=== PATIENT | male | born 1995 | race Caucasian/White ===

== ENCOUNTER 2017-06-06 16:56 | Emergency (ER) | payer OTHER ==
[2017-06-06 18:13] VITALS: BP 118/57
[2017-06-06] MEDS ORDERED: Amoxicillin/Clavulanate TAB* 875 MG PO ONE (18:31)
--- NOTE | 2017-06-06 18:32 | UC ---
Throat Pain/Nasal Rhett HPI - HPI Summary HPI Summary: c/o fever, sore throat and fatigue for several days - History of Current Complaint Chief Complaint: UCGeneralIllness Stated Complaint: SORE THROAT Time Seen by Provider: 06/06/17 18:26 Hx Obtained From: Patient Onset/Duration: Gradual Onset, Lasting Days Severity: Severe Pain Intensity: 9 Cough: None Associated Signs & Symptoms: Positive: Dysphagia, Fever - Epiglottits Risk Factors Epiglottis Risk Factors: Negative - Allergies/Home Medications Allergies/Adverse Reactions: Allergies Allergy/AdvReac Type Severity Reaction Status Date / Time No Known Allergies Allergy Verified 06/06/17 18:09 Home Medications: Home Medications Acetaminophen [Acetaminophen Extra Strength] 1,000 mg PO ONCE 06/06/17 [History Confirmed 06/06/17] PMH/Surg Hx/FS Hx/Imm Hx Previously Healthy: Yes - Surgical History Surgical History: None - Family History Known Family History: Positive: None - Social History Alcohol Use: Weekly Substance Use Type: Marijuana Substance Use Comment - Amount & Last Used: daily Smoking Status (MU): Never Smoked Tobacco Review of Systems Constitutional: Fever ENT: Sore Throat All Other Systems Reviewed And Are Negative: Yes Physical Exam Triage Information Reviewed: Yes Appearance: No Pain Distress, Well-Nourished, Ill-Appearing Vital Signs: Initial Vital Signs Temp 99 F 06/06/17 18:07 Pulse 71 06/06/17 18:07 Resp 16 06/06/17 18:07 BP 118/57 06/06/17 18:07 Pulse Ox 98 06/06/17 18:07 Vital Signs Reviewed: Yes Eyes: Positive: Conjunctiva Clear ENT: Positive: Hearing grossly normal, Pharyngeal erythema, TMs normal, Tonsillar exudate Neck exam: Normal Neck: Positive: Supple, Nontender Respiratory Exam: Normal Respiratory: Positive: Chest non-tender, Lungs clear, Normal breath sounds, No respiratory distress Cardiovascular Exam: Normal Cardiovascular: Positive: RRR, No Murmur, Pulses Normal, Brisk Capillary Refill Throat Pain/Nasal Course/Dx - Course Course Of Treatment: start amoxil at UC first dose, oral hydration, tylenol or ibuprofen as needed, probiotics, f/u with PCP - Differential Dx/Diagnosis Provider Diagnoses: streptococcal pharyngitis Discharge - Sign-Out/Discharge Documenting (check all that apply): Discharge/Admit/Transfer - Discharge Plan Condition: Stable Disposition: HOME Patient Education Materials: Amoxicillin (By mouth), Strep Throat (DC) Referrals: Non Staff,Doctor [Primary Care Provider] - [facility] [Outside] - Billing Disposition and Condition Condition: STABLE Disposition: HOME
[2017-06-06] MEDS ORDERED: Amoxicillin PO (*) 500 MG CAP PO ONE (18:45)
== END 2017-06-06 18:53 | disposition home or self-care (01) ==
LOC: UCCORT 16:56
DX: J02.0 Streptococcal pharyngitis (principal)
CPT/HCPCS: 87651; 99202; A9270-GY; G0463